=== PATIENT | female | born 1975 | race Caucasian/White ===

== ENCOUNTER 2024-01-31 11:45 | Emergency (ER) | payer OTHER ==
[~2024-01-31] VITALS: Ht 160 cm; Wt 102.5 kg
[2024-01-31 11:52] VITALS: BP 122/71; PULSE 55; RESP 18; TEMP 98.6; O2SAT 97
[2024-01-31] MEDS ORDERED: TYLENOL #3 PO ONE (12:18)
[2024-01-31] MEDS ORDERED: TORADOL ONE (12:18)
[2024-01-31] MEDS: TORADOL IM STA (12:26)
[2024-01-31] MEDS: TYLENOL #3 PO STA (12:26)
[2024-01-31 12:47] VITALS: BP 137/81; PULSE 52; RESP 18; O2SAT 100
== END 2024-01-31 12:47 | disposition home or self-care (01) ==
LOC: ER 11:45
DX: S62.101A Fracture of unspecified carpal bone, right wrist, initial encounter for closed fracture (principal); E07.9 Disorder of thyroid, unspecified; I10 Essential (primary) hypertension; E66.01 Morbid (severe) obesity due to excess calories; F41.9 Anxiety disorder, unspecified; F32.A Depression, unspecified; Z98.84 Bariatric surgery status; Z98.890 Other specified postprocedural states; W19.XXXA Unspecified fall, initial encounter; Y93.89 Activity, other specified; Y92.89 Other specified places as the place of occurrence of the external cause; Y99.8 Other external cause status
CPT/HCPCS: 99284; 29125; 73110; 96372; J1885; J3490